=== PATIENT | female | born 1960 | race Caucasian/White ===

== ENCOUNTER 2024-02-11 15:43 | Emergency (ER) | payer MEDICARE, SELFPAY ==
[2024-02-11] VITALS (13 sets, daily range): BP systolic 126–148; BP diastolic 77–93; PULSE 67–87; TEMP 37.1; O2SAT 92–98; BMI 37.3
--- NOTE | 2024-02-11 16:08 | ECG_ITS ---
The [facility] Test Date: 2024-02-11 Pat Name: SELMA GUTIERREZ Department: Room: - Gender: Female Supervisor Insecticide: : 1960 Requested By: Order Number: [id number] Reading MD: DOMINIC AMES Measurements Intervals [place] Rate: 68 P: 18 OK: 184 QRS: -3 QRSD: 86 T: 18 QT: 406 QTc: 422 Interpretive Statements 1100 Sinus rhythm 5211 Minimal voltage criteria for LVH, may be normal variant 9130 borderline ECG No previous ECG available for comparison Electronically Signed On 02-11-2024 17:56:31 EDT by DOMINIC AMES
--- NOTE | 2024-02-11 16:08 | XR_ITS ---
The [address] [address] Patient Name: CAROLYN GUTIERREZ MRN: [id number] date: 1960 Sex: F Assigned Patient Location: ED.MAIN Current Patient Location: ER Accession/Order Number: [id number] Exam Date: 02/11/2024 16:27 Report Date: 02/11/2024 17:05 At the request of: DENNIS REYEZ Procedure: XR chest 1V ONE-VIEW CHEST RADIOGRAPH, 02/11/2024 4:27 PM EDT COMPARISON: None CLINICAL HISTORY: Hypertension FINDINGS: No acute pulmonary disease. No pulmonary edema, pneumothorax, or pleural effusion. Borderline heart size. No acute osseous abnormality. XR/XR chest 1V IMPRESSION: 1. No acute abnormality identified. 2. Borderline heart size. Electronically authenticated by: Giovana HONG Date: 02/11/2024 17:05
--- NOTE | 2024-02-11 16:09 | ED_ITS ---
HPI HPI - General Adult General Chief complaint: Headache Stated complaint: SOB Time Seen by Provider: 02/11/24 15:57 Source: patient Mode of arrival: ambulance Limitations: no limitations History of Present Illness HPI narrative: Patient is a 63-year-old female brought to the emergency department by ambulance for the evaluation of an episode at the grocery store where she felt short of b reath and dizzy. She states she has a history of this in the past when her blood pressure spikes. She has a intelligence director at [facility], she states she is unhappy with his management of her blood pressure. She states she would like to find a new intelligence director. She states she has no symptoms at this time, all of her symptoms have resolved. She has a normal blood pressure on arrival to the emergency department. She has been compliant with her home medications. No recent illness. She is frustrated in initial interview that she continues to have issues managing her blood pressure. Related Data Home Medications ?Medication ?Instructions ?Recorded ?Confirmed alprazolam 0.5 mg tablet (Xanax) 0.5 mg PO DAILY 02/11/24 02/11/24 aspirin 81 mg tablet,delayed 81 mg PO DAILY 02/11/24 02/11/24 release (Adult Aspirin Regimen) carvedilol 6.25 mg tablet 6.25 mg PO BID 02/11/24 02/11/24 clonidine HCl 0.1 mg tablet 0.1 mg PO DAILY 02/11/24 02/11/24 furosemide 20 mg tablet 20 mg PO DAILY 02/11/24 02/11/24 gabapentin 600 mg tablet 600 mg PO TID 02/11/24 02/11/24 montelukast 5 mg chewable tablet 10 mg PO DAILY 02/11/24 02/11/24 (Singulair) omeprazole 40 mg capsule,delayed 40 mg PO BID 02/11/24 02/11/24 release paroxetine HCl 40 mg tablet (Paxil) 60 mg PO DAILY 02/11/24 02/11/24 quetiapine 25 mg tablet 25 mg PO DAILY 02/11/24 02/11/24 spironolactone 25 mg tablet 25 mg PO DAILY 02/11/24 02/11/24 Allergies Allergy/AdvReac Type Severity Reaction Status Date / Time bupropion [From Wellbutrin] AdvReac Mild Hives Verified 02/11/24 15:59 codeine AdvReac Mild Vomiting Verified 02/11/24 15:59 lactose AdvReac Mild Verified 02/11/24 15:59 Penicillins AdvReac Mild Hives Verified 02/11/24 15:59 Iqzypry-QSO-NeV Reductase AdvReac Mild Confusion Verified 02/11/24 15:59 Inhibitor Opioid HPI Opioid Management Most Recent Opioid Data: No Data to Display Review of Systems ROS Constitutional Denies: fever or chills Ears, nose, mouth, and throat Denies: throat pain or nasal congestion Respiratory Reports: shortness of breath Gastrointestinal Denies: nausea or vomiting Integumentary/Breast Denies: rash Neurological Reports: dizziness; Denies: headache Hematologic/Lymphatic Denies: easy bruising or easy bleeding Exam Narrative Exam Narrative: Gen.: Awake, alert, in no distress Head: Normocephalic, atraumatic ENT: Moist mucous membranes Respiratory: No respiratory distress, lungs clear bilaterally Cardio: Regular rate and rhythm Extremities: Moves extremities equally Psych: Normal mood and affect Neuro: No focal neuro deficit Skin: Warm, dry, intact Constitutional Vital Signs, click to edit/add: Last Vital Signs Temp 98.8 F 02/11/24 15:55 Pulse 69 02/11/24 15:55 Resp 18 02/11/24 15:55 BP 148/91 H 02/11/24 15:55 Pulse Ox 97 02/11/24 15:55 O2 Del Method Room Air 02/11/24 15:55 Course Vital Signs Vital signs: Vital Signs Temperature 98.8 F 02/11/24 15:55 Pulse Rate 69 02/11/24 15:55 Respiratory Rate 18 02/11/24 15:55 Blood Pressure 148/91 H 02/11/24 15:55 Pulse Oximetry 97 02/11/24 15:55 Oxygen Delivery Method Room Air 02/11/24 15:55 Temperature 98.8 F 02/11/24 15:55 Pulse Rate 69 02/11/24 15:55 Respiratory Rate 18 02/11/24 15:55 Blood Pressure 148/91 H 02/11/24 15:55 Pulse Oximetry 97 02/11/24 15:55 Oxygen Delivery Method Room Air 02/11/24 15:55 Medical Decision Making [facility] Narrative Medical decision making narrative: Blood pressure stable in the ER, cardiac workup is unremarkable and the patient is discharged home with a new intelligence director referral. She has no focal medical complaints in the ER. Return to the emergency department if symptoms change or worsen Medical Records Medical records reviewed: Yes I reviewed the patient's medical records Lab Data Lab results reviewed: Yes I reviewed the patient's lab results Labs: Lab Results 02/11/24 Range/Units 16:25 WBC 9.0 (4.0-11.0) 10^3/uL RBC 4.33 (4.20-5.40) 10^6/uL Hgb 13.0 (12.0-16.0) g/dL Hct 39.5 (36.0-48.0) % MCV 91.2 (81.0-99.0) fL MCH 30.0 (26.7-34.0) pg MCHC 32.9 (29.9-35.2) g/dL RDW 13.0 (11.0-15.0) % Plt Count 278 (150-450) 10^3/uL MPV 9.2 L (9.5-13.5) fL Neut % (Auto) 63.6 (43.0-75.0) % Lymph % (Auto) 27.8 (20.5-60.0) % [place] % (Auto) 5.5 (1.7-12.0) % Eos % (Auto) 2.0 (0.9-7.0) % Baso % (Auto) 0.7 (0.2-2.0) % Neut # (Auto) 5.7 (1.4-6.5) 10^3/uL Lymph # (Auto) 2.5 (1.2-3.8) 10^3/uL [place] # (Auto) 0.5 (0.3-0.8) 10^3/uL Eos # (Auto) 0.2 (0.0-0.7) 10^3/uL Baso # (Auto) 0.1 (0.0-0.1) 10^3/uL Abs Immat Gran (auto) 0.04 H (0.00-0.03) 10^3/uL Imm/Tot Granulo (auto) 0.4 (0.0-0.5) % PT 10.1 (9.0-11.6) sec INR 0.95 Sodium 138 (136-145) mmol/L Potassium 3.9 (3.5-5.1) mmol/L Chloride 102 (98-107) mmol/L Carbon Dioxide 26.4 (21.0-32.0) mmol/L Anion Gap 13.5 BUN 14.0 (7.0-18.0) mg/dL Creatinine 1.14 H (0.55-1.02) mg/dL Est GFR ( Amer) 59 L (>=60) Est GFR (Non-Af Amer) 48 L (>=60) BUN/Creatinine Ratio 12.3 Glucose 91 (74-106) mg/dL Calcium 9.2 (8.5-10.1) mg/dL Total Bilirubin 0.3 (0.2-1.0) mg/dL AST 15 (15-37) U/L ALT 19 (14-59) U/L Alkaline Phosphatase 69 (46-116) U/L Troponin I High Sens 6.2 (4.0-51.3) pg/mL NT-Pro-B Natriuret Pep 188.0 (<=900.0) pg/mL Total Protein 7.2 (6.4-8.2) g/dL Albumin 3.4 (3.4-5.0) g/dL Globulin 3.8 g/dL Albumin/Globulin Ratio 0.9 TSH 1.881 (0.358-3.740) uIU/mL Imaging Data Chest x-ray: Attestation: I have reviewed the pertinent imaging results. Radiologist's impression: ITS Impressions Chest X-Ray 02/11/24 16:08 IMPRESSION: 1. No acute abnormality identified. 2. Borderline heart size. Electronically authenticated by: Giovana HONG Date: 02/11/2024 17:05 ECG Data Attestation: I personally reviewed and interpreted this ECG as follows: (Normal sinus rhythm at a rate of 68, no acute ST elevation or ectopy. EKG reviewed by attending physician) Discharge Plan Discharge Stand Alone Forms: Portal Instructions Chief Complaint: Headache Clinical Impression: Hypertension Patient Disposition: Home, Self-Care Time of Disposition Decision: 17:11 Condition: Good Prescriptions / Home Meds: No Action furosemide 20 mg tablet 20 mg PO DAILY alprazolam [Xanax] 0.5 mg tablet 0.5 mg PO DAILY gabapentin 600 mg tablet 600 mg PO TID omeprazole 40 mg capsule,delayed release(DR/EC) 40 mg PO BID montelukast [Singulair] 5 mg tablet,chewable 10 mg PO DAILY clonidine HCl 0.1 mg tablet 0.1 mg PO DAILY carvedilol 6.25 mg tablet 6.25 mg PO BID Rx Instructions: must administer with a meal/food spironolactone 25 mg tablet 25 mg PO DAILY paroxetine HCl [Paxil] 40 mg tablet 60 mg PO DAILY quetiapine 25 mg tablet 25 mg PO DAILY aspirin [Adult Aspirin Regimen] 81 mg tablet,delayed release (DR/EC) 81 mg PO DAILY Print Language: [place] Instructions: Hypertension (ED) Referrals: YOLY COOLEY [Physician] - 1 week ([facility]) Physician,Non-Staff, [Physician] - 1 week
[2024-02-11 16:32] LABS: Basophils Absolute Auto 0.1 10^3/uL (0.0-0.1); Basophils Percent Auto 0.7 % (0.2-2.0); Eosinophils Absolute Auto 0.2 10^3/uL (0.0-0.7); Hematocrit 39.5 % (36.0-48.0); Immature Granulocytes Abs Auto 0.04 10^3/uL (0.00-0.03); Immature Granulocytes Pct Auto 0.4 % (0.0-0.5); Lymphocytes Absolute Auto 2.5 10^3/uL (1.2-3.8); Lymphocytes Percent Auto 27.8 % (20.5-60.0); Mean Corpuscular HGB Conc 32.9 g/dL (29.9-35.2); Mean Corpuscular Volume 91.2 fL (81.0-99.0); Mean Platelet Volume 9.2 fL (9.5-13.5); Monocytes Absolute Auto 0.5 10^3/uL (0.3-0.8); Monocytes Percent Auto 5.5 % (1.7-12.0); Neutrophils Absolute Auto 5.7 10^3/uL (1.4-6.5); Neutrophils Percent Auto 63.6 % (43.0-75.0); Platelet Count 278 10^3/uL (150-450); Red Blood Count 4.33 10^6/uL (4.20-5.40)
[2024-02-11 16:53] LABS: INR 0.95; Prothrombin Time 10.1 sec (9.0-11.6)
[2024-02-11 17:04] LABS: Alanine Aminotransferase 19 U/L (14-59); Albumin Globulin Ratio 0.9; Albumin Level 3.4 g/dL (3.4-5.0); Alkaline Phosphatase 69 U/L (46-116); Anion Gap 13.5; Aspartate Amino Transferase 15 U/L (15-37); BUN Creatinine Ratio 12.3; Bilirubin Total 0.3 mg/dL (0.2-1.0); Calcium 9.2 mg/dL (8.5-10.1); Carbon Dioxide 26.4 mmol/L (21.0-32.0); Chloride 102 mmol/L (98-107); Estimated GFR (African America 59 (>=60); Estimated GFR (Non-African Ame 48 (>=60); Globulin 3.8 g/dL; Glucose 91 mg/dL (74-106); Potassium 3.9 mmol/L (3.5-5.1); Sodium 138 mmol/L (136-145); Thyroid Stimulating Hormone 1.881 uIU/mL (0.358-3.740); Total Protein 7.2 g/dL (6.4-8.2); Troponin I High Sensitivity 6.2 pg/mL (4.0-51.3)
== END 2024-02-11 17:22 | disposition home or self-care (01) ==
PROVIDERS: Physician Assistant; Emergency Provider Emergency Medicine; PCP Family Medicine
DX: I10 Essential (primary) hypertension (principal)
CPT/HCPCS: 36415; 71045; 80053; 83880; 84443; 84484; 85025; 85610; 93005; 99285